=== PATIENT | female | born 1975 | race African-American/Black ===

== ENCOUNTER 2019-04-10 13:44 | Emergency (ER) | payer OTHER ==
[~2019-04-10] VITALS: Ht 172.7 cm; Wt 95.3 kg
[~2019-04-10 13:44] MED LIST: ATIVAN0.5 MG PO; BENAZEPRIL HCL10 MG; BENAZEPRIL HCL10 MG PO; COZAAR 25 MG TA25 M1 PO; CYCLOBENZAPRINE5 MG PO; DARVOCET-N 1001 EACH PO; FLUOXETINE HCL40 MG PO; HYDROCHLOROTH12.5 M1 PO; HYDROCODONE-AP1 EAC6 PO; IBUPROFEN 600600 M1 PO; IBUPROFEN 800800 MG PO; LEVOTHYROXINE0.2 M1 PO; LYSTEDA650 MG; MEDROLDOSEPACK PO; NORCO 5-325 TA1 EACH PO; PENICILLIN VK250 MG PO; PENICILLIN VK500 M1 PO; PERCOCET 5-3251 EACH PO; PHENERGAN25 MG RE; PREDNISONE 10 M10 MG PO; PROAIR HFA8.5 GM; PROTONIX40 MG PO; PROVENTIL IH; REMERON 30 MG T30 MG; SEROQUEL 100 M100 M1 PO; STRATTERA25 MG PO; SYNTHROID300 MCG PO; VALIUM5 MG PO; VENTOLIN HFA INH8 GM INH; ZPAK PO
[2019-04-10] MEDS ORDERED: ACCUNEB SO1.25 MG/1 INH (15:27)
[2019-04-10] MEDS ORDERED: PREDNISONE 20 M20 MG PO (15:27)
[2019-04-10] MEDS ORDERED: SYNTHROID125 MC1 PO (15:27)
[2019-04-10] MEDS ORDERED: MOBIC15 MG PO (15:27)
[2019-04-10] MEDS ORDERED: VENTOLIN HFA 1818 GM INH (15:27)
[2019-04-10 16:30] VITALS: BP 158/99
== END 2019-04-10 16:30 | disposition home or self-care (01) ==
LOC: ER 13:44
DX: J45.901 Unspecified asthma with (acute) exacerbation (principal); J30.9 Allergic rhinitis, unspecified; M79.18 Myalgia, other site; Z76.0 Encounter for issue of repeat prescription; F31.9 Bipolar disorder, unspecified; E89.0 Postprocedural hypothyroidism; Z88.5 Allergy status to narcotic agent; Z98.51 Tubal ligation status; Z85.850 Personal history of malignant neoplasm of thyroid